=== PATIENT | male | born 1960 | race Caucasian/White ===

== ENCOUNTER → 2016-09-17 | Outpatient (CLI) | payer MEDICARE, MEDICAID ==
[~2016-09-17] MED LIST: AMLO2.5T2 PO; ASPI-1061 PO; ATOR10TA69 PO; GLIP5TAB11 PO; LISI-618 PO
[2016-09-17 09:32] LABS: BASOPHILS % (AUTO) 1.4 % (0.0-2.0); EOSINOPHILS % (AUTO) 5.3 % (1.0-6.0); HEMATOCRIT 29.8 % (41-53); HEMOGLOBIN 9.5 g/dL (13.5-17.5); LYMPHOCYTES # (AUTO) 1.5 K/uL (1.0-4.8); LYMPHOCYTES % (AUTO) 15.1 % (22.0-44.0); MEAN CORPUSCULAR HEMOGLOBIN 29.1 pg (26.0-34.0); MEAN CORPUSCULAR VOLUME 91 fL (80-100); MONOCYTES # (AUTO) 0.6 K/uL (0.1-1.0); MONOCYTES % (AUTO) 5.6 % (2.0-9.0); NEUTROPHILS # (AUTO) 7.1 K/uL (1.8-7.7); NEUTROPHILS % (AUTO) 72.6 % (40.0-70.0); PLATELET COUNT (AUTO) 370 K/uL (150-450); RED BLOOD CELL COUNT(AUTO) 3.28 MIL/uL (4.50-5.90); RED CELL DISTRIBUTION WIDTH 16.1 % (11.5-14.5); WHITE BLOOD COUNT (AUTO) 9.8 K/uL (4.5-11.0)
[2016-09-17 09:45] LABS: ALBUMIN 2.9 g/dL (3.4-5.0); BILIRUBIN,TOTAL 0.5 mg/dL (0.1-1.0); CALCIUM, TOTAL 9.5 mg/dL (8.8-10.5); CREATININE 7.62 mg/dL (0.60-1.30); MAGNESIUM 2.4 mg/dL (1.80-2.40); POTASSIUM 3.3 mmol/L (3.5-5.1); THYROID STIMULATING HORMONE 1.06 uIU/mL (0.36-3.74); TOTAL PROTEIN, SERUM 7.6 g/dL (6.4-8.2)
[2016-09-17 09:58] LABS: HEMOGLOBIN A1C 6.9 % (4.5-6.2)
== END | disposition home or self-care (01) ==
LOC: LABPV 07:57
PROVIDERS: ATTEND Internal Medicine Cardiovascular Disease
DX: I11.0 Hypertensive heart disease with heart failure (principal); I50.9 Heart failure, unspecified; E11.8 Type 2 diabetes mellitus with unspecified complications; I51.7 Cardiomegaly; I70.0 Atherosclerosis of aorta; R91.8 Other nonspecific abnormal finding of lung field; E55.9 Vitamin D deficiency, unspecified; J90 Pleural effusion, not elsewhere classified; Z95.0 Presence of cardiac pacemaker; Z95.1 Presence of aortocoronary bypass graft
CPT/HCPCS: 71020; 82306; 83036; 83735; 84439; 84443

== ENCOUNTER → 2017-02-19 | Outpatient (CLI) | payer MEDICARE, MEDICAID | END | disposition home or self-care (01) | LOC: RADMN 08:31 | PROVIDERS: ATTEND Internal Medicine Cardiovascular Disease | DX: I50.9 Heart failure, unspecified (principal); I49.9 Cardiac arrhythmia, unspecified | CPT/HCPCS: 78472; Q3010 ==

== ENCOUNTER 2018-05-05 13:56 | Inpatient (IN) | payer MEDICARE, MEDICAID ==
[~2018-05-05] VITALS: Ht 172.7 cm; Wt 77.6 kg
[~2018-05-05 13:56] MED LIST changes: -ASPI-1061 PO; +ASPI81TA87 PO
[2018-05-05 14:14] LABS: GLUCOSE,POINT OF CARE 135 MG/DL (70-110)
[2018-05-05] MEDS ORDERED: LORazepam 2 MG/ML VIAL IVP PRN (14:45)
[2018-05-05] MEDS ORDERED: ACETAMINOPHEN 325 MG TABLET PO PRN ×2 (14:45→15:15)
[2018-05-05] MEDS ORDERED: DEXTROSE 50%-WATER 25 GM/50 ML SYRINGE IVP PRN (14:45)
[2018-05-05] MEDS ORDERED: BISACODYL 10 MG RECTAL RECTAL SUPPOSITORY PR PRN (14:45)
[2018-05-05 14:51] LABS: BASOPHILS % (AUTO) 0.6 % (0.0-2.0); EOSINOPHILS % (AUTO) 0.6 % (1.0-6.0); LYMPHOCYTES # (AUTO) 0.8 K/uL (1.0-4.8); LYMPHOCYTES % (AUTO) 4.7 % (22.0-44.0); MEAN CORPUSCULAR HEMOGLOBIN 30.5 pg (26.0-34.0); MEAN CORPUSCULAR HGB CONC 32.6 G/dL (31.0-37.0); MEAN CORPUSCULAR VOLUME 94 fL (80-100); MONOCYTES # (AUTO) 0.7 K/uL (0.1-1.0); MONOCYTES % (AUTO) 4.1 % (2.0-9.0); NEUTROPHILS # (AUTO) 16.1 K/uL (1.8-7.7); RED BLOOD CELL COUNT(AUTO) 6.24 MIL/uL (4.50-5.90); RED CELL DISTRIBUTION WIDTH 17.1 % (11.5-14.5)
[2018-05-05 14:58] LABS: HEMATOCRIT 58.3 % (41-53)
[2018-05-05 15:04] LABS: ALANINE AMINOTRANSFERASE 43 U/L (12-78); ALBUMIN 4.2 g/dL (3.4-5.0); ALKALINE PHOSPHATASE 156 U/L (46-116); ANION GAP 23 mmol/L (8-16); ASPARTATE AMINOTRANSFERASE 19 U/L (15-37); BILIRUBIN,TOTAL 0.8 mg/dL (0.1-1.0); CALCIUM, TOTAL 10.3 mg/dL (8.8-10.5); CARBON DIOXIDE 23 mmol/L (22-29); CHLORIDE 85 mmol/L (98-107); CREATININE 12.55 mg/dL (0.60-1.30); GLOMERULAR FILTR. RATE CALC 4 mL/min (>60); GLUCOSE,RANDOM 181 mg/dL (70-110); SODIUM SERUM 131 mmol/L (136-145); TOTAL PROTEIN, SERUM 9.6 g/dL (6.4-8.2)
[2018-05-05 15:11] LABS: POTASSIUM 7.1 mmol/L (3.5-5.1)
[2018-05-05 15:12] LABS: UREA NITROGEN, BLOOD 111 mg/dL (7-18)
[2018-05-05] MEDS ORDERED: 0.9% SODIUM CHLORIDE 10 ML SYRINGE IVP PRN (15:15)
[2018-05-05] MEDS ORDERED: ONDANSETRON HCL 4 MG/2 ML VIAL IVP PRN (15:15)
[2018-05-05] MEDS: LevETIRAcetam 500 MG TABLET PO SCH ×2 (15:20→21:24)
[2018-05-05 15:25] LABS: CARBAMAZEPINE (TEGRETOL) < 0.5 mcg/mL (4.0-12.0); PHENYTOIN (DILANTIN) < 0.5 mcg/mL (10.0-20.0); VALPROIC ACID < 3 mcg/mL (50-100)
[2018-05-05] MEDS ORDERED: ALBUTEROL SULFATE 2.5 MG/0.5 ML NEB SOLUTION NEB ONE (15:45)
[2018-05-05] MEDS ORDERED: DEXTROSE 50%-WATER 25 GM/50 ML SYRINGE IVP ONE ×2 (15:45→22:30)
[2018-05-05] MEDS ORDERED: CALCIUM GLUCONATE 100 MG/ML 10 ML IVP ONE (15:45)
[2018-05-05] MEDS ORDERED: INSULIN REGULAR, HUMAN 100 UNITS/ML IVP ONE ×2 (15:45→22:45)
[2018-05-05] MEDS ORDERED: IPRATROPIUM BROMIDE 0.5 MG/2.5 ML NEB SOLUTION NEB ONE (15:45)
[2018-05-05 15:56] LABS: PLATELET COUNT (AUTO) 189 K/uL (150-450)
[2018-05-05 16:20] VITALS: BP 167/99
[2018-05-05 16:30] VITALS: BP 167/99
[2018-05-05 17:23] LABS: GLUCOSE,POINT OF CARE 180 MG/DL (70-110)
[2018-05-05 20:00] VITALS: BP 145/83
[2018-05-05] MEDS ORDERED: HEPARIN SODIUM,PORCINE 5,000 UNITS/ML VIAL SQ SCH (21:00)
[2018-05-05] MEDS: DOCUSATE SODIUM 100 MG CAPSULE PO SCH (21:00)
[2018-05-05 22:05] LABS: CALCIUM, TOTAL 9.6 mg/dL (8.8-10.5); CREATININE 9.33 mg/dL (0.60-1.30)
[2018-05-05 22:12] LABS: POTASSIUM 6.2 mmol/L (3.5-5.1)
[2018-05-05] MEDS ORDERED: SODIUM POLYSTYRENE SULFONATE 15 GM/60 ML SUSPENSION BOTTLE PO ONE (22:30)
[2018-05-05] MEDS ORDERED: INSULIN LISPRO 100 UNITS/ML SQ ONE (22:30)
[2018-05-05 23:00] VITALS: BP 168/101
[2018-05-06] VITALS: BP 111/69
[2018-05-06 04:00] VITALS: BP 116/71
[2018-05-06 04:57] LABS: BASOPHILS % (AUTO) 0.5 % (0.0-2.0); EOSINOPHILS % (AUTO) 0.7 % (1.0-6.0); HEMATOCRIT 51.2 % (41-53); HEMOGLOBIN 16.9 g/dL (13.5-17.5); LYMPHOCYTES # (AUTO) 0.9 K/uL (1.0-4.8); LYMPHOCYTES % (AUTO) 6.5 % (22.0-44.0); MEAN CORPUSCULAR HEMOGLOBIN 31.2 pg (26.0-34.0); MEAN CORPUSCULAR VOLUME 95 fL (80-100); MONOCYTES # (AUTO) 1.1 K/uL (0.1-1.0); MONOCYTES % (AUTO) 8.5 % (2.0-9.0); NEUTROPHILS # (AUTO) 11.1 K/uL (1.8-7.7); NEUTROPHILS % (AUTO) 83.8 % (40.0-70.0); PLATELET COUNT (AUTO) 172 K/uL (150-450); RED BLOOD CELL COUNT(AUTO) 5.42 MIL/uL (4.50-5.90); RED CELL DISTRIBUTION WIDTH 16.7 % (11.5-14.5)
[2018-05-06 05:08] LABS: CREATININE 9.67 mg/dL (0.60-1.30); MAGNESIUM 3.1 mg/dL (1.80-2.40); PHOSPHORUS 8.4 mg/dL (2.5-4.9); POTASSIUM 5.7 mmol/L (3.5-5.1)
[2018-05-06] MEDS: PANTOPRAZOLE SODIUM 40 MG DR TABLET PO SCH (08:16)
[2018-05-06] MEDS: LevETIRAcetam 500 MG TABLET PO SCH ×2 (08:16→21:21)
[2018-05-06] MEDS: ATORVASTATIN CALCIUM 20 MG TABLET PO SCH (08:16)
[2018-05-06 08:44] VITALS: BP 113/70
[2018-05-06] MEDS: DOCUSATE SODIUM 100 MG CAPSULE PO SCH ×2 (09:00→21:21)
[2018-05-06] MEDS ORDERED: ASPIRIN 81 MG CHEWABLE TABLET PO SCH (09:00)
[2018-05-06] MEDS ORDERED: SODIUM CHLORIDE 0.9% 2,000 ML IV ONE (10:30)
[2018-05-06 11:43] LABS: GLUCOSE,POINT OF CARE 258 MG/DL (70-110)
[2018-05-06 12:00] VITALS: BP 127/42
[2018-05-06] MEDS: INSULIN LISPRO 100 UNITS/ML SQ PRN ×2 (12:08→21:31)
[2018-05-06 16:00] VITALS: BP 90/35
[2018-05-06 18:18] LABS: GLUCOSE,POINT OF CARE 129 MG/DL (70-110)
[2018-05-06 20:00] VITALS: BP 143/78
[2018-05-06 22:47] LABS: GLUCOSE,POINT OF CARE 167 MG/DL (70-110)
[2018-05-07] VITALS: BP 114/38
[2018-05-07 04:00] VITALS: BP 121/48
[2018-05-07 04:45] LABS: BASOPHILS % (AUTO) 1.2 % (0.0-2.0); EOSINOPHILS % (AUTO) 2.4 % (1.0-6.0); HEMATOCRIT 45.7 % (41-53); HEMOGLOBIN 15.6 g/dL (13.5-17.5); LYMPHOCYTES # (AUTO) 1.3 K/uL (1.0-4.8); LYMPHOCYTES % (AUTO) 12.1 % (22.0-44.0); MEAN CORPUSCULAR HEMOGLOBIN 31.7 pg (26.0-34.0); MEAN CORPUSCULAR HGB CONC 34.2 G/dL (31.0-37.0); MEAN CORPUSCULAR VOLUME 93 fL (80-100); MONOCYTES # (AUTO) 1.1 K/uL (0.1-1.0); MONOCYTES % (AUTO) 10.4 % (2.0-9.0); NEUTROPHILS # (AUTO) 7.9 K/uL (1.8-7.7); NEUTROPHILS % (AUTO) 73.9 % (40.0-70.0); PLATELET COUNT (AUTO) 151 K/uL (150-450); RED BLOOD CELL COUNT(AUTO) 4.92 MIL/uL (4.50-5.90); RED CELL DISTRIBUTION WIDTH 16.4 % (11.5-14.5)
[2018-05-07 04:55] LABS: CALCIUM, TOTAL 8.9 mg/dL (8.8-10.5); CREATININE 7.26 mg/dL (0.60-1.30); MAGNESIUM 2.5 mg/dL (1.80-2.40); PHOSPHORUS 7.9 mg/dL (2.5-4.9); POTASSIUM 4.1 mmol/L (3.5-5.1)
[2018-05-07 06:43] LABS: GLUCOSE,POINT OF CARE 150 MG/DL (70-110)
[2018-05-07 06:43] LABS: GLUCOSE,POINT OF CARE 135 MG/DL (70-110)
[2018-05-07 06:43] LABS: GLUCOSE,POINT OF CARE 137 MG/DL (70-110)
[2018-05-07 08:00] VITALS: BP 97/45
[2018-05-07] MEDS ORDERED: SODIUM CHLORIDE 0.9% 250 ML IV ONE (09:08)
[2018-05-07] MEDS: DOCUSATE SODIUM 100 MG CAPSULE PO SCH ×2 (09:10→20:21)
[2018-05-07] MEDS: LevETIRAcetam 500 MG TABLET PO SCH ×2 (09:10→20:21)
[2018-05-07] MEDS: ATORVASTATIN CALCIUM 20 MG TABLET PO SCH (09:10)
[2018-05-07] MEDS: PANTOPRAZOLE SODIUM 40 MG DR TABLET PO SCH (09:10)
[2018-05-07 12:00] VITALS: BP 107/37
[2018-05-07] MEDS: CALCIUM ACETATE 667 MG CAPSULE PO SCH ×2 (12:09→18:40)
[2018-05-07] MEDS: INSULIN LISPRO 100 UNITS/ML SQ PRN ×3 (12:09→21:32)
[2018-05-07 15:13] VITALS: BP 125/46
[2018-05-07 19:03] LABS: GLUCOMETER DEV NAME(LOC) 6N 2D; GLUCOSE,POINT OF CARE 246 MG/DL (70-110)
[2018-05-07 19:50] VITALS: BP 119/52
[2018-05-07 21:32] LABS: GLUCOMETER DEV NAME(LOC) 6N 1E; GLUCOSE,POINT OF CARE 255 MG/DL (70-110)
[2018-05-08 00:30] VITALS: BP 115/56
[2018-05-08 04:35] VITALS: BP 112/58
[2018-05-08] MEDS: INSULIN LISPRO 100 UNITS/ML SQ PRN ×2 (06:37→12:23)
[2018-05-08 07:08] LABS: GLUCOSE,POINT OF CARE 181 MG/DL (70-110)
[2018-05-08] MEDS: PANTOPRAZOLE SODIUM 40 MG DR TABLET PO SCH (08:47)
[2018-05-08] MEDS: CALCIUM ACETATE 667 MG CAPSULE PO SCH ×2 (08:47→12:26)
[2018-05-08] MEDS: DOCUSATE SODIUM 100 MG CAPSULE PO SCH (08:47)
[2018-05-08 11:47] VITALS: BP 104/70
[2018-05-08] MEDS: ATORVASTATIN CALCIUM 20 MG TABLET PO SCH (12:23)
[2018-05-08] MEDS: LevETIRAcetam 500 MG TABLET PO SCH (12:28)
[2018-05-09 06:13] LABS: GLUCOMETER DEV NAME(LOC) 6N 1E; GLUCOSE,POINT OF CARE 161 MG/DL (70-110)
[2018-05-09 06:13] LABS: GLUCOMETER DEV NAME(LOC) 6N 1E; GLUCOSE,POINT OF CARE 186 MG/DL (70-110)
== END 2018-05-08 17:10 | disposition home or self-care (01) | DRG 82 ==
LOC: EMS 13:58 → ICU 15:42 → 6N 05-07 14:50
PROVIDERS: ADMIT Internal Medicine; ATTEND Internal Medicine
PROC: 5A1D70Z Performance of Urinary Filtration, Intermittent, Less than 6 Hours Per Day (ICD-10-PCS; principal; 2018-05-05)
PROC: 5A1D70Z Performance of Urinary Filtration, Intermittent, Less than 6 Hours Per Day (ICD-10-PCS; 2018-05-06)
PROC: 5A1D70Z Performance of Urinary Filtration, Intermittent, Less than 6 Hours Per Day (ICD-10-PCS; 2018-05-08)
DX: S06.5X9A Traumatic subdural hemorrhage with loss of consciousness of unspecified duration, initial encounter (principal); N18.6 End stage renal disease; I13.2 Hypertensive heart and chronic kidney disease with heart failure and with stage 5 chronic kidney disease, or end stage renal disease; G40.909 Epilepsy, unspecified, not intractable, without status epilepticus; E11.319 Type 2 diabetes mellitus with unspecified diabetic retinopathy without macular edema; E11.21 Type 2 diabetes mellitus with diabetic nephropathy; E11.22 Type 2 diabetes mellitus with diabetic chronic kidney disease; D72.829 Elevated white blood cell count, unspecified; E78.5 Hyperlipidemia, unspecified; E83.39 Other disorders of phosphorus metabolism; E87.5 Hyperkalemia; E87.6 Hypokalemia; I95.9 Hypotension, unspecified; R21 Rash and other nonspecific skin eruption; H54.8 Legal blindness, as defined in USA; I25.10 Atherosclerotic heart disease of native coronary artery without angina pectoris; I50.9 Heart failure, unspecified; X58.XXXA Exposure to other specified factors, initial encounter; L87.0 Keratosis follicularis et parafollicularis in cutem penetrans; R09.02 Hypoxemia; Z79.84 Long term (current) use of oral hypoglycemic drugs; Z82.49 Family history of ischemic heart disease and other diseases of the circulatory system; Z83.3 Family history of diabetes mellitus; Z95.0 Presence of cardiac pacemaker; Z95.1 Presence of aortocoronary bypass graft; Z79.899 Other long term (current) drug therapy; Z79.82 Long term (current) use of aspirin; Y93.89 Activity, other specified; Y92.89 Other specified places as the place of occurrence of the external cause; Y99.8 Other external cause status
CPT/HCPCS: 36245; 70450; 76937; 83735; 84100; 87081; 87340; 90935; 93005; 93306; 93970; 97116; 97162; 99291; G0378; J0610; J1815; J7030; J7050

== ENCOUNTER → 2018-06-23 | Outpatient (CLI) | payer MEDICARE, MEDICAID ==
[~2018-06-23] VITALS: Ht 167.6 cm; Wt 73.0 kg
[2018-06-23 09:46] VITALS: BP 181/107
== END | disposition home or self-care (01) ==
LOC: SRCNTR 09:21
PROVIDERS: ATTEND Neurological Surgery
DX: S06.5X9A Traumatic subdural hemorrhage with loss of consciousness of unspecified duration, initial encounter (principal); R56.9 Unspecified convulsions; R51 Headache; W19.XXXA Unspecified fall, initial encounter; Y93.89 Activity, other specified; Y92.89 Other specified places as the place of occurrence of the external cause; Y99.8 Other external cause status
CPT/HCPCS: G0463

== ENCOUNTER 2018-08-11 11:14 | Inpatient (IN) | payer MEDICARE, MEDICAID ==
[~2018-08-11] VITALS: Ht 170.2 cm; Wt 67.4 kg
[2018-08-11 11:54] LABS: GLUCOSE,POINT OF CARE 378 MG/DL (70-110)
[2018-08-11 14:15] LABS: HEMATOCRIT 46.7 % (41-53); HEMOGLOBIN 15.1 g/dL (13.5-17.5); MEAN CORPUSCULAR HEMOGLOBIN 30.2 pg (26.0-34.0); MEAN CORPUSCULAR HGB CONC 32.5 G/dL (31.0-37.0); MEAN CORPUSCULAR VOLUME 93 fL (80-100); PLATELET COUNT (AUTO) 224 K/uL (150-450); RED BLOOD CELL COUNT(AUTO) 5.01 MIL/uL (4.50-5.90); RED CELL DISTRIBUTION WIDTH 16.6 % (11.5-14.5)
[2018-08-11 14:33] LABS: ALANINE AMINOTRANSFERASE 35 U/L (12-78); ALKALINE PHOSPHATASE 198 U/L (46-116); ANION GAP 9 mmol/L (8-16); ASPARTATE AMINOTRANSFERASE 21 U/L (15-37); BILIRUBIN,TOTAL 0.8 mg/dL (0.1-1.0); CALCIUM, TOTAL 11.2 mg/dL (8.8-10.5); CARBON DIOXIDE 30 mmol/L (22-29); CHLORIDE 86 mmol/L (98-107); CREATININE 7.99 mg/dL (0.60-1.30); GLOMERULAR FILTR. RATE CALC 7 mL/min (>60); GLUCOSE,RANDOM 315 mg/dL (70-110); SODIUM SERUM 125 mmol/L (136-145); TOTAL PROTEIN, SERUM 8.2 g/dL (6.4-8.2); UREA NITROGEN, BLOOD 67 mg/dL (7-18)
[2018-08-11 14:38] LABS: POTASSIUM 6.3 mmol/L (3.5-5.1)
[2018-08-11] MEDS ORDERED: AMLO-512 PO (14:38)
[2018-08-11 14:39] LABS: LACTIC ACID 2.2 mmol/L (0.4-2.0)
[2018-08-11 14:41] LABS: B-TYPE NATRIURETIC PEPTIDE 3300 pg/mL (0-100)
[2018-08-11 14:42] LABS: ALBUMIN 2.6 g/dL (3.4-5.0)
[2018-08-11] MEDS ORDERED: HYDROmorphone 2 MG/ML SYRINGE IVP ONE (14:45)
[2018-08-11] MEDS ORDERED: ONDANSETRON HCL 4 MG/2 ML VIAL IVP ONE (14:45)
[2018-08-11 14:47] LABS: BAND NEUTROPHILS % (MANUAL) 14 % (0-5); LYMPHOCYTES % (MANUAL) 12 % (22-44); SEGMENTED NEUTROPHILS % 74 % (40-70)
[2018-08-11] MEDS ORDERED: IPRATROPIUM BROMIDE 0.5 MG/2.5 ML NEB SOLUTION NEB ONE (15:00)
[2018-08-11] MEDS ORDERED: PIPERACILLIN/TAZO 3.375 GM/D5W 50 ML IV ONE (15:00)
[2018-08-11] MEDS ORDERED: ALBUTEROL SULFATE 5 MG/ML 20 ML NEB SOLN [BULK] NEB ONE (15:00)
[2018-08-11] MEDS ORDERED: VANCOMYCIN HCL 1 GM/D5% WATER 200 ML IV ONE (15:00)
[2018-08-11] MEDS ORDERED: SODIUM CHLORIDE 0.9% 2,000 ML IV ONE (16:17)
[2018-08-11] MEDS ORDERED: INSULIN REGULAR, HUMAN 100 UNITS/ML IVP ONE ×2 (16:30→22:00)
[2018-08-11] MEDS ORDERED: CALCIUM GLUCONATE 100 MG/ML 10 ML IVP ONE (16:30)
[2018-08-11 16:44] LABS: GLUCOSE,POINT OF CARE 310 MG/DL (70-110)
[2018-08-11] MEDS: MORPHINE SULFATE 4 MG/ML SYRINGE IVP PRN (17:00)
[2018-08-11] MEDS ORDERED: NOREPINEPHRINE 4 MG/D5%-WATER 250 ML IV PRN (17:30)
[2018-08-11] MEDS ORDERED: ONDANSETRON HCL 4 MG/2 ML VIAL IVP PRN ×2 (18:30→19:45)
[2018-08-11] MEDS ORDERED: ACETAMINOPHEN 325 MG TABLET PO PRN (18:30)
[2018-08-11] MEDS ORDERED: 0.9% SODIUM CHLORIDE 10 ML SYRINGE IVP PRN (18:30)
[2018-08-11] MEDS ORDERED: ZOLPIDEM TARTRATE 5 MG TABLET PO PRN (19:45)
[2018-08-11] MEDS ORDERED: MORPHINE SULFATE 4 MG/ML SYRINGE IVP PRN (19:45)
[2018-08-11] MEDS ORDERED: BISACODYL 10 MG RECTAL RECTAL SUPPOSITORY PR PRN (19:45)
[2018-08-11] MEDS ORDERED: DEXTROSE 50%-WATER 25 GM/50 ML SYRINGE IVP PRN (19:45)
[2018-08-11] MEDS ORDERED: MAGNESIUM HYDROXIDE SUSPENSION 30 ML UDCUP PO PRN (19:45)
[2018-08-11] MEDS ORDERED: ALBUTEROL SULFATE 2.5 MG/0.5 ML NEB SOLUTION NEB PRN (19:45)
[2018-08-11] MEDS ORDERED: IPRATROPIUM BROMIDE 0.5 MG/2.5 ML NEB SOLUTION NEB PRN (19:45)
[2018-08-11] MEDS ORDERED: VANCOMYCIN HCL 1 GM/D5% WATER 200 ML IV PRN (20:15)
[2018-08-11 21:34] LABS: CALCIUM, TOTAL 10.6 mg/dL (8.8-10.5); CREATININE 8.07 mg/dL (0.60-1.30)
[2018-08-11 21:38] LABS: POTASSIUM 6.2 mmol/L (3.5-5.1)
[2018-08-11] MEDS: HEPARIN SODIUM,PORCINE 5,000 UNITS/ML VIAL SQ SCH (22:18)
[2018-08-11] MEDS ORDERED: SODIUM CHLORIDE 0.9% 250 ML IV ONE (22:34)
[2018-08-11 22:38] LABS: GLUCOSE,POINT OF CARE 337 MG/DL (70-110)
[2018-08-11] MEDS: PIPERACILLIN SODIUM/TAZOBACTAM 2.25 GM in DEXTROSE 5%-WATER 50 ML IV SCH (22:57)
[2018-08-11] MEDS ORDERED: PIPERACILLIN/TAZO 3.375 GM/D5W 50 ML IV SCH (23:00)
[2018-08-11 23:45] LABS: CALCIUM, TOTAL 9.3 mg/dL (8.8-10.5); CREATININE 7.25 mg/dL (0.60-1.30); POTASSIUM 5.7 mmol/L (3.5-5.1)
[2018-08-12] MEDS: INSULIN LISPRO 100 UNITS/ML SQ PRN ×4 (00:12→18:33)
[2018-08-12 00:19] VITALS: BP 116/53
[2018-08-12] MEDS: ACETAMINOPHEN 325 MG TABLET PO PRN ×2 (00:19→13:23)
[2018-08-12 01:19] VITALS: BP 109/57
[2018-08-12] MEDS: OxyCODONE HCL/ACETAMINOPHEN 5-325 MG TABLET PO PRN (03:23)
[2018-08-12 04:58] LABS: HEMATOCRIT 40.5 % (41-53); HEMOGLOBIN 13.3 g/dL (13.5-17.5); MEAN CORPUSCULAR HEMOGLOBIN 30.1 pg (26.0-34.0); MEAN CORPUSCULAR HGB CONC 32.9 G/dL (31.0-37.0); MEAN CORPUSCULAR VOLUME 92 fL (80-100); PLATELET COUNT (AUTO) 200 K/uL (150-450); RED BLOOD CELL COUNT(AUTO) 4.43 MIL/uL (4.50-5.90); RED CELL DISTRIBUTION WIDTH 16.5 % (11.5-14.5)
[2018-08-12 05:12] LABS: BILIRUBIN,TOTAL 0.8 mg/dL (0.1-1.0); CALCIUM, TOTAL 10.6 mg/dL (8.8-10.5); CREATININE 8.13 mg/dL (0.60-1.30); MAGNESIUM 2.9 mg/dL (1.80-2.40); PHOSPHORUS 5.7 mg/dL (2.5-4.9); TOTAL PROTEIN, SERUM 6.8 g/dL (6.4-8.2)
[2018-08-12 05:14] LABS: POTASSIUM 6.3 mmol/L (3.5-5.1)
[2018-08-12 05:18] LABS: BAND NEUTROPHILS % (MANUAL) 10 % (0-5); LYMPHOCYTES % (MANUAL) 3 % (22-44); MONOCYTES % (MANUAL) 7 % (2-9); SEGMENTED NEUTROPHILS % 80 % (40-70)
[2018-08-12 06:25] LABS: GLUCOSE,POINT OF CARE 338 MG/DL (70-110)
[2018-08-12 06:59] LABS: GLUCOSE,POINT OF CARE 182 MG/DL (70-110)
[2018-08-12] MEDS ORDERED: VANCOMYCIN HCL 1 GM/D5% WATER 200 ML IV SCH (07:00)
[2018-08-12 08:00] VITALS: BP 118/57
[2018-08-12] MEDS: PIPERACILLIN SODIUM/TAZOBACTAM 2.25 GM in DEXTROSE 5%-WATER 50 ML IV SCH ×2 (08:17→15:38)
[2018-08-12] MEDS: FAMOTIDINE 20 MG TABLET PO SCH (09:00)
[2018-08-12] MEDS: HEPARIN SODIUM,PORCINE 5,000 UNITS/ML VIAL SQ SCH (09:00)
[2018-08-12 12:00] VITALS: BP 101/57
[2018-08-12] MEDS ORDERED: PROPOFOL 1% 20 ML VIAL IVP ONE (12:00)
[2018-08-12] MEDS ORDERED: FentaNYL CITRATE-PF 100 MCG/2 ML VIAL IVP ONE (12:00)
[2018-08-12 13:13] LABS: GLUCOSE,POINT OF CARE 201 MG/DL (70-110)
[2018-08-12 16:00] VITALS: BP 111/66
[2018-08-12] MEDS ORDERED: VANCOMYCIN HCL 500 MG in DEXTROSE 5%-WATER 100 ML IV ONE (16:45)
[2018-08-12 17:56] LABS: HEMOGLOBIN 14.3 g/dL (13.5-17.5); MEAN CORPUSCULAR HEMOGLOBIN 30.1 pg (26.0-34.0); MEAN CORPUSCULAR HGB CONC 32.5 G/dL (31.0-37.0); MEAN CORPUSCULAR VOLUME 92 fL (80-100); PLATELET COUNT (AUTO) 189 K/uL (150-450); RED BLOOD CELL COUNT(AUTO) 4.76 MIL/uL (4.50-5.90); RED CELL DISTRIBUTION WIDTH 16.9 % (11.5-14.5)
[2018-08-12 18:00] LABS: CALCIUM, TOTAL 10.3 mg/dL (8.8-10.5); CREATININE 4.97 mg/dL (0.60-1.30); MAGNESIUM 2.3 mg/dL (1.80-2.40); POTASSIUM 5.3 mmol/L (3.5-5.1)
[2018-08-12 18:44] LABS: GLUCOSE,POINT OF CARE 217 MG/DL (70-110)
[2018-08-12 18:55] LABS: BAND NEUTROPHILS % (MANUAL) 18 % (0-5); LYMPHOCYTES % (MANUAL) 3 % (22-44); MONOCYTES % (MANUAL) 4 % (2-9); SEGMENTED NEUTROPHILS % 75 % (40-70)
[2018-08-12] MEDS: MORPHINE SULFATE 4 MG/ML SYRINGE IVP PRN (19:42)
[2018-08-12] MEDS ORDERED: SODIUM CL IRRIG SOLN BAG 3,000 ML IRRIG ONE (20:43)
[2018-08-12] MEDS ORDERED: BUPIVACAINE HCL/PF 0.5% 30 ML VIAL ONE (20:43)
[2018-08-12] MEDS ORDERED: SODIUM CHLORIDE 0.9% 1,000 ML IV ONE (20:53)
[2018-08-12] MEDS ORDERED: SODIUM HYPOCHLORITE 0.25% [HALF STRENGTH] 473 ML SOLUTION TP ONE (21:15)
[2018-08-13] VITALS (7 sets, daily range): BP systolic 96–127; BP diastolic 49–86
[2018-08-13] MEDS: OxyCODONE HCL/ACETAMINOPHEN 5-325 MG TABLET PO PRN ×2 (00:07→20:19)
[2018-08-13] MEDS ORDERED: SODIUM CHLORIDE 0.9% 250 ML IV ONE (00:19)
[2018-08-13 00:22] LABS: GLUCOSE,POINT OF CARE 109 MG/DL (70-110)
[2018-08-13] MEDS: HEPARIN SODIUM,PORCINE 5,000 UNITS/ML VIAL SQ SCH ×3 (00:26→21:00)
[2018-08-13] MEDS: PIPERACILLIN SODIUM/TAZOBACTAM 2.25 GM in DEXTROSE 5%-WATER 50 ML IV SCH ×4 (00:26→23:49)
[2018-08-13 04:53] LABS: HEMATOCRIT 37.6 % (41-53); HEMOGLOBIN 12.5 g/dL (13.5-17.5); MEAN CORPUSCULAR HEMOGLOBIN 30.4 pg (26.0-34.0); MEAN CORPUSCULAR HGB CONC 33.2 G/dL (31.0-37.0); MEAN CORPUSCULAR VOLUME 92 fL (80-100); PLATELET COUNT (AUTO) 185 K/uL (150-450); RED BLOOD CELL COUNT(AUTO) 4.11 MIL/uL (4.50-5.90); RED CELL DISTRIBUTION WIDTH 16.5 % (11.5-14.5)
[2018-08-13 05:28] LABS: ALBUMIN 1.7 g/dL (3.4-5.0); CALCIUM, TOTAL 9.7 mg/dL (8.8-10.5); CREATININE 5.61 mg/dL (0.60-1.30); MAGNESIUM 2.3 mg/dL (1.80-2.40); TOTAL PROTEIN, SERUM 5.4 g/dL (6.4-8.2)
[2018-08-13 05:46] LABS: POTASSIUM 6.4 mmol/L (3.5-5.1)
[2018-08-13 07:26] LABS: BAND NEUTROPHILS % (MANUAL) 16 % (0-5); LYMPHOCYTES % (MANUAL) 3 % (22-44); MONOCYTES % (MANUAL) 5 % (2-9); SEGMENTED NEUTROPHILS % 76 % (40-70)
[2018-08-13] MEDS ORDERED: SODIUM CHLORIDE 0.9% 2,000 ML IV ONE (08:41)
[2018-08-13 09:09] LABS: GLUCOSE,POINT OF CARE 115 MG/DL (70-110)
[2018-08-13] MEDS: ATORVASTATIN CALCIUM 10 MG TABLET PO SCH (09:40)
[2018-08-13] MEDS: ASPIRIN 81 MG EC TABLET PO SCH (09:41)
[2018-08-13] MEDS: FAMOTIDINE 20 MG TABLET PO SCH (09:41)
[2018-08-13] MEDS ORDERED: SODIUM CHLORIDE 0.9% IRRIG BTL 1,000 ML IRRIG ONE (10:47)
[2018-08-13 13:04] LABS: GLUCOSE,POINT OF CARE 108 MG/DL (70-110)
[2018-08-13 18:44] LABS: GLUCOSE,POINT OF CARE 135 MG/DL (70-110)
[2018-08-13 22:39] LABS: GLUCOSE,POINT OF CARE 163 MG/DL (70-110)
[2018-08-14] VITALS (7 sets, daily range): BP systolic 75–107; BP diastolic 15–86
[2018-08-14 05:20] LABS: HEMATOCRIT 39.9 % (41-53); HEMOGLOBIN 13.4 g/dL (13.5-17.5); MEAN CORPUSCULAR HEMOGLOBIN 30.7 pg (26.0-34.0); MEAN CORPUSCULAR HGB CONC 33.4 G/dL (31.0-37.0); MEAN CORPUSCULAR VOLUME 92 fL (80-100); PLATELET COUNT (AUTO) 226 K/uL (150-450); RED BLOOD CELL COUNT(AUTO) 4.35 MIL/uL (4.50-5.90); RED CELL DISTRIBUTION WIDTH 17.1 % (11.5-14.5)
[2018-08-14 06:40] LABS: GLUCOSE,POINT OF CARE 219 MG/DL (70-110)
[2018-08-14] MEDS: PIPERACILLIN SODIUM/TAZOBACTAM 2.25 GM in DEXTROSE 5%-WATER 50 ML IV SCH ×3 (06:47→23:43)
[2018-08-14 06:50] LABS: ALBUMIN 1.5 g/dL (3.4-5.0); BILIRUBIN,TOTAL 1.3 mg/dL (0.1-1.0); CALCIUM, TOTAL 10.8 mg/dL (8.8-10.5); CREATININE 4.79 mg/dL (0.60-1.30); MAGNESIUM 2.4 mg/dL (1.80-2.40); POTASSIUM 5.8 mmol/L (3.5-5.1); TOTAL PROTEIN, SERUM 6.5 g/dL (6.4-8.2); VANCOMYCIN,RANDOM 13.8 mcg/mL (25.0-50.0)
[2018-08-14] MEDS: INSULIN LISPRO 100 UNITS/ML SQ PRN ×2 (06:58→21:05)
[2018-08-14] MEDS: FAMOTIDINE 20 MG TABLET PO SCH (09:00)
[2018-08-14] MEDS: ATORVASTATIN CALCIUM 10 MG TABLET PO SCH (09:00)
[2018-08-14] MEDS: HEPARIN SODIUM,PORCINE 5,000 UNITS/ML VIAL SQ SCH ×2 (09:00→20:13)
[2018-08-14] MEDS: ASPIRIN 81 MG EC TABLET PO SCH (09:00)
[2018-08-14 09:17] LABS: BAND NEUTROPHILS % (MANUAL) 4 % (0-5); LYMPHOCYTES % (MANUAL) 3 % (22-44); METAMYELOCYTES % 2 % (0-0); MONOCYTES % (MANUAL) 5 % (2-9); SEGMENTED NEUTROPHILS % 86 % (40-70)
[2018-08-14] MEDS ORDERED: VANCOMYCIN HCL 1 GM/D5% WATER 200 ML IV ONE (10:00)
[2018-08-14] MEDS: OxyCODONE HCL/ACETAMINOPHEN 5-325 MG TABLET PO PRN ×2 (10:56→21:05)
[2018-08-14] MEDS: MORPHINE SULFATE 4 MG/ML SYRINGE IVP PRN (11:10)
[2018-08-14] MEDS ORDERED: SODIUM CHLORIDE 0.9% IRRIG BTL 1,000 ML IRRIG ONE (15:39)
[2018-08-14 18:54] LABS: GLUCOSE,POINT OF CARE 202 MG/DL (70-110)
[2018-08-14 23:58] LABS: GLUCOSE,POINT OF CARE 204 MG/DL (70-110)
[2018-08-15] VITALS (8 sets, daily range): BP systolic 59–131; BP diastolic 33–75
[2018-08-15 05:02] LABS: HEMATOCRIT 44.6 % (41-53); HEMOGLOBIN 14.8 g/dL (13.5-17.5); MEAN CORPUSCULAR HEMOGLOBIN 30.2 pg (26.0-34.0); MEAN CORPUSCULAR HGB CONC 33.1 G/dL (31.0-37.0); MEAN CORPUSCULAR VOLUME 91 fL (80-100); PLATELET COUNT (AUTO) 229 K/uL (150-450); RED BLOOD CELL COUNT(AUTO) 4.88 MIL/uL (4.50-5.90); RED CELL DISTRIBUTION WIDTH 16.8 % (11.5-14.5)
[2018-08-15] MEDS: PIPERACILLIN SODIUM/TAZOBACTAM 2.25 GM in DEXTROSE 5%-WATER 50 ML IV SCH ×3 (05:28→22:56)
[2018-08-15 05:33] LABS: ALBUMIN 1.5 g/dL (3.4-5.0); BILIRUBIN,TOTAL 1.6 mg/dL (0.1-1.0); CALCIUM, TOTAL 10.1 mg/dL (8.8-10.5); CREATININE 6.12 mg/dL (0.60-1.30); MAGNESIUM 2.7 mg/dL (1.80-2.40); TOTAL PROTEIN, SERUM 5.7 g/dL (6.4-8.2)
[2018-08-15 05:57] LABS: BAND NEUTROPHILS % (MANUAL) 18 % (0-5); LYMPHOCYTES % (MANUAL) 2 % (22-44); METAMYELOCYTES % 1 % (0-0); MONOCYTES % (MANUAL) 4 % (2-9); MYELOCYTES % 1 % (0-0); SEGMENTED NEUTROPHILS % 74 % (40-70)
[2018-08-15] MEDS: INSULIN LISPRO 100 UNITS/ML SQ PRN ×4 (06:03→22:53)
[2018-08-15] MEDS ORDERED: CALCIUM GLUCONATE 1,000 MG in DEXTROSE 5%-WATER 50 ML IV ONE (06:38)
[2018-08-15] MEDS: HEPARIN SODIUM,PORCINE 5,000 UNITS/ML VIAL SQ SCH ×2 (09:00→21:33)
[2018-08-15] MEDS: FAMOTIDINE 20 MG TABLET PO SCH (10:38)
[2018-08-15] MEDS: ASPIRIN 81 MG EC TABLET PO SCH (10:38)
[2018-08-15] MEDS: ATORVASTATIN CALCIUM 10 MG TABLET PO SCH (10:39)
[2018-08-15] MEDS ORDERED: VANCOMYCIN HCL 500 MG in DEXTROSE 5%-WATER 100 ML IV ONE (14:00)
[2018-08-15] MEDS ORDERED: SODIUM CHLORIDE 0.9% 250 ML IV ONE (14:40)
[2018-08-15] MEDS: OxyCODONE HCL/ACETAMINOPHEN 5-325 MG TABLET PO PRN ×2 (15:52→16:24)
[2018-08-15 18:04] LABS: GLUCOSE,POINT OF CARE 159 MG/DL (70-110)
[2018-08-15] MEDS: MORPHINE SULFATE 4 MG/ML SYRINGE IVP PRN (21:33)
[2018-08-16] VITALS (7 sets, daily range): BP systolic 96–129; BP diastolic 44–71
[2018-08-16] MEDS ORDERED: SODIUM CHLORIDE 0.9% 250 ML IV ONE (02:31)
[2018-08-16] MEDS ORDERED: SODIUM CHLORIDE 0.9% IRRIG BTL 1,000 ML IRRIG ONE (04:01)
[2018-08-16] MEDS: MORPHINE SULFATE 4 MG/ML SYRINGE IVP PRN ×2 (05:40→23:51)
[2018-08-16] MEDS: INSULIN LISPRO 100 UNITS/ML SQ PRN ×3 (05:47→18:28)
[2018-08-16] MEDS: PIPERACILLIN SODIUM/TAZOBACTAM 2.25 GM in DEXTROSE 5%-WATER 50 ML IV SCH ×3 (06:11→23:54)
[2018-08-16 06:13] LABS: VANCOMYCIN,RANDOM 24.3 mcg/mL (25.0-50.0)
[2018-08-16 08:42] LABS: CALCIUM, TOTAL 10.4 mg/dL (8.8-10.5); CREATININE 4.71 mg/dL (0.60-1.30); MAGNESIUM 2.5 mg/dL (1.80-2.40); PHOSPHORUS 6.8 mg/dL (2.5-4.9); POTASSIUM 5.4 mmol/L (3.5-5.1)
[2018-08-16] MEDS: ATORVASTATIN CALCIUM 10 MG TABLET PO SCH (08:44)
[2018-08-16] MEDS: ASPIRIN 81 MG EC TABLET PO SCH (08:44)
[2018-08-16] MEDS: FAMOTIDINE 20 MG TABLET PO SCH (08:44)
[2018-08-16] MEDS: HEPARIN SODIUM,PORCINE 5,000 UNITS/ML VIAL SQ SCH ×2 (08:58→21:00)
[2018-08-16] MEDS ORDERED: SODIUM CHLORIDE 0.9% 0 ML IV ONE (09:54)
[2018-08-16 11:19] LABS: GLUCOMETER DEV NAME(LOC) 5S.1; GLUCOSE,POINT OF CARE 284 MG/DL (70-110)
[2018-08-16 11:19] LABS: GLUCOMETER DEV NAME(LOC) 5S.1; GLUCOSE,POINT OF CARE 235 MG/DL (70-110)
[2018-08-16 11:19] LABS: GLUCOMETER DEV NAME(LOC) 5S.1; GLUCOSE,POINT OF CARE 241 MG/DL (70-110)
[2018-08-16 11:29] LABS: GLUCOMETER DEV NAME(LOC) 5S.2; GLUCOSE,POINT OF CARE 329 MG/DL (70-110)
[2018-08-16] MEDS ORDERED: SODIUM CHLORIDE 0.9% 1,000 ML IV ONE (17:19)
[2018-08-16 18:59] LABS: GLUCOMETER DEV NAME(LOC) 5S.2; GLUCOSE,POINT OF CARE 338 MG/DL (70-110)
[2018-08-17] VITALS (7 sets, daily range): BP systolic 104–139; BP diastolic 46–64
[2018-08-17] MEDS: PIPERACILLIN SODIUM/TAZOBACTAM 2.25 GM in DEXTROSE 5%-WATER 50 ML IV SCH ×2 (06:39→16:50)
[2018-08-17 06:41] LABS: HEMATOCRIT 40.4 % (41-53); HEMOGLOBIN 13.2 g/dL (13.5-17.5); MEAN CORPUSCULAR HGB CONC 32.7 G/dL (31.0-37.0); MEAN CORPUSCULAR VOLUME 92 fL (80-100); PLATELET COUNT (AUTO) 180 K/uL (150-450); RED BLOOD CELL COUNT(AUTO) 4.41 MIL/uL (4.50-5.90); RED CELL DISTRIBUTION WIDTH 16.8 % (11.5-14.5)
[2018-08-17 06:50] LABS: INR 1.3 (0.9-1.1); PROTHROMBIN TIME 13.1 SEC (9.4-11.6)
[2018-08-17 07:29] LABS: CALCIUM, TOTAL 10.1 mg/dL (8.8-10.5); CREATININE 3.8 mg/dL (0.60-1.30); POTASSIUM 4.6 mmol/L (3.5-5.1)
[2018-08-17 07:34] LABS: ALBUMIN 1.2 g/dL (3.4-5.0); BILIRUBIN,TOTAL 1.5 mg/dL (0.1-1.0); MAGNESIUM 1.9 mg/dL (1.80-2.40); PHOSPHORUS 6.3 mg/dL (2.5-4.9); TOTAL PROTEIN, SERUM 6.1 g/dL (6.4-8.2)
[2018-08-17 07:40] LABS: BAND NEUTROPHILS % (MANUAL) 11 % (0-5); LYMPHOCYTES % (MANUAL) 4 % (22-44); MONOCYTES % (MANUAL) 5 % (2-9); REACTIVE LYMPHOCYTES 2 % (0-0); SEGMENTED NEUTROPHILS % 78 % (40-70)
[2018-08-17 08:04] LABS: GLUCOMETER DEV NAME(LOC) 5S.2; GLUCOSE,POINT OF CARE 260 MG/DL (70-110)
[2018-08-17 08:04] LABS: GLUCOMETER DEV NAME(LOC) 5S.2; GLUCOSE,POINT OF CARE 128 MG/DL (70-110)
[2018-08-17] MEDS: ATORVASTATIN CALCIUM 10 MG TABLET PO SCH (09:00)
[2018-08-17] MEDS: HEPARIN SODIUM,PORCINE 5,000 UNITS/ML VIAL SQ SCH ×2 (09:00→21:00)
[2018-08-17] MEDS: ASPIRIN 81 MG EC TABLET PO SCH (09:00)
[2018-08-17] MEDS: FAMOTIDINE 20 MG TABLET PO SCH (09:00)
[2018-08-17] MEDS ORDERED: PHENYLEPHRINE 200 MG/D5%-WATER 250 ML IV PRN (11:15)
[2018-08-17 11:38] LABS: ABG BASE EXCESS -10.9 mmol/L (-2.0-3.0); ABG CARBOXYHEMOGLOBIN 1.1 % (0.0-1.5); ABG HCO3 16.7 mmol/L (22.0-26.0); ABG METHEMOGLOBIN 0.3 % (0.0-1.5); ABG OXYGEN CONTENT 17.8 mL/dL (15.0-23.0); ABG OXYGEN SATURATION 96.7 % (95.0-98.0); ABG OXYHEMOGLOBIN 95.3 % (94.0-100.0); ABG PCO2 33 mmHg (35-45); ABG PH 7.292 (7.35-7.450); ABG TOTAL HEMOGLOBIN 13.2 G/dL (12.0-18.0); PO2, ARTERIAL BG 101.2 mmHg (84.0-92.0); SOURCE, BLOOD GAS ARTERIAL; TEMPERATURE, FAHRENHEIT, BG 98.6 FAHREN (96.0-98.6)
[2018-08-17 11:39] LABS: SITE, BLOOD GAS RT BRACHIAL
[2018-08-17 11:40] LABS: O2 DEVICE,BLOOD GAS CANNULA (ROOM AIR)
[2018-08-17 11:44] LABS: GLUCOSE,POINT OF CARE 247 MG/DL (70-110)
[2018-08-17] MEDS: ALBUMIN HUMAN 25%-12.5GM/50ML 50 ML IV SCH ×3 (12:52→23:58)
[2018-08-17] MEDS: MORPHINE SULFATE 4 MG/ML SYRINGE IVP PRN ×2 (15:48→17:44)
[2018-08-17] MEDS ORDERED: CLINDAMYCIN 900 MG/D5% WATER 50 ML IV SCH (17:15)
[2018-08-17] MEDS: INSULIN LISPRO 100 UNITS/ML SQ PRN ×2 (17:43→21:52)
[2018-08-17 18:29] LABS: GLUCOSE,POINT OF CARE 323 MG/DL (70-110)
[2018-08-17] MEDS: CLINDAMYCIN 900 MG/D5% WATER 50 ML IV SCH (18:31)
[2018-08-17 23:29] LABS: GLUCOSE,POINT OF CARE 300 MG/DL (70-110)
[2018-08-18] VITALS (8 sets, daily range): BP systolic 115–138; BP diastolic 56–106
[2018-08-18] MEDS ORDERED: CefTRIAXone 1 GM/DEXTROSE 50 ML IV SCH
[2018-08-18] MEDS: CLINDAMYCIN 900 MG/D5% WATER 50 ML IV SCH ×3 (02:13→19:15)
[2018-08-18] MEDS: MORPHINE SULFATE 4 MG/ML SYRINGE IVP PRN ×2 (03:06→13:15)
[2018-08-18] MEDS ORDERED: SUCCINYLCHOLINE CHLORIDE 20 MG/ML 10 ML VIAL IVP ONE (05:25)
[2018-08-18] MEDS ORDERED: HYDROmorphone 2 MG/ML SYRINGE IVP ONE (05:25)
[2018-08-18] MEDS ORDERED: FentaNYL CITRATE-PF 100 MCG/2 ML VIAL IVP ONE (05:25)
[2018-08-18] MEDS ORDERED: PHENYLEPHRINE HCL 10 MG/ML VIAL IVP ONE (05:25)
[2018-08-18] MEDS ORDERED: PROPOFOL 1% 20 ML VIAL IVP ONE (05:25)
[2018-08-18] MEDS ORDERED: MIDAZOLAM HCL 2 MG/2 ML VIAL IVP ONE (05:25)
[2018-08-18] MEDS ORDERED: 0.9% SODIUM CHLORIDE 10 ML VIAL IVP ONE (05:25)
[2018-08-18] MEDS ORDERED: LIDOCAINE/PF 2% 5 ML VIAL IM ONE (05:25)
[2018-08-18 05:39] LABS: GLUCOSE,POINT OF CARE 301 MG/DL (70-110)
[2018-08-18] MEDS: ALBUMIN HUMAN 25%-12.5GM/50ML 50 ML IV SCH ×3 (06:10→19:00)
[2018-08-18] MEDS: INSULIN LISPRO 100 UNITS/ML SQ PRN ×4 (06:11→21:12)
[2018-08-18] MEDS: ASPIRIN 81 MG EC TABLET PO SCH (08:58)
[2018-08-18] MEDS: FAMOTIDINE 20 MG TABLET PO SCH (08:58)
[2018-08-18] MEDS: ATORVASTATIN CALCIUM 10 MG TABLET PO SCH (08:58)
[2018-08-18] MEDS: HEPARIN SODIUM,PORCINE 5,000 UNITS/ML VIAL SQ SCH ×2 (08:59→21:06)
[2018-08-18 09:15] LABS: HEMATOCRIT 33.8 % (41-53); HEMOGLOBIN 11.2 g/dL (13.5-17.5); MEAN CORPUSCULAR VOLUME 91 fL (80-100); PLATELET COUNT (AUTO) 162 K/uL (150-450); RED BLOOD CELL COUNT(AUTO) 3.72 MIL/uL (4.50-5.90); RED CELL DISTRIBUTION WIDTH 16.6 % (11.5-14.5)
[2018-08-18 09:32] LABS: CALCIUM, TOTAL 9.9 mg/dL (8.8-10.5); CREATININE 6.01 mg/dL (0.60-1.30); POTASSIUM 5.1 mmol/L (3.5-5.1)
[2018-08-18 10:17] LABS: BAND NEUTROPHILS % (MANUAL) 9 % (0-5); LYMPHOCYTES % (MANUAL) 3 % (22-44); MONOCYTES % (MANUAL) 5 % (2-9); SEGMENTED NEUTROPHILS % 83 % (40-70)
[2018-08-18 10:18] LABS: PLATELET MORPHOLOGY COMMENT GIANT PLTS PRESENT
[2018-08-18 15:09] LABS: GLUCOSE,POINT OF CARE 315 MG/DL (70-110)
[2018-08-18] MEDS ORDERED: SODIUM CHLORIDE 0.9% 250 ML IV ONE (18:14)
[2018-08-18] MEDS: MEROPENEM 500 MG in SODIUM CHLORIDE 0.9% 50 ML IV SCH (18:26)
[2018-08-18 18:39] LABS: GLUCOMETER DEV NAME(LOC) 6N.2; GLUCOSE,POINT OF CARE 270 MG/DL (70-110)
[2018-08-18] MEDS: INSULIN GLARGINE,HUM.REC.ANLOG 100 UNITS/ML SQ SCH (21:12)
[2018-08-19] VITALS (8 sets, daily range): BP systolic 91–128; BP diastolic 31–57
[2018-08-19] MEDS: ALBUMIN HUMAN 25%-12.5GM/50ML 50 ML IV SCH ×4 (01:12→18:23)
[2018-08-19] MEDS: CLINDAMYCIN 900 MG/D5% WATER 50 ML IV SCH ×3 (02:27→21:44)
[2018-08-19 03:06] LABS: GLUCOMETER DEV NAME(LOC) 6N.2; GLUCOSE,POINT OF CARE 271 MG/DL (70-110)
[2018-08-19] MEDS: INSULIN LISPRO 100 UNITS/ML SQ PRN (06:05)
[2018-08-19 06:38] LABS: HEMATOCRIT 31.4 % (41-53); HEMOGLOBIN 10.4 g/dL (13.5-17.5); MEAN CORPUSCULAR HEMOGLOBIN 30.1 pg (26.0-34.0); MEAN CORPUSCULAR VOLUME 91 fL (80-100); PLATELET COUNT (AUTO) 171 K/uL (150-450); RED BLOOD CELL COUNT(AUTO) 3.45 MIL/uL (4.50-5.90); RED CELL DISTRIBUTION WIDTH 16.2 % (11.5-14.5)
[2018-08-19 06:49] LABS: GLUCOMETER DEV NAME(LOC) 6N.2; GLUCOSE,POINT OF CARE 188 MG/DL (70-110)
[2018-08-19 07:12] LABS: ALBUMIN 2.2 g/dL (3.4-5.0); BILIRUBIN,TOTAL 1.9 mg/dL (0.1-1.0); CALCIUM, TOTAL 9.6 mg/dL (8.8-10.5); CREATININE 7.24 mg/dL (0.60-1.30); MAGNESIUM 2.8 mg/dL (1.80-2.40); POTASSIUM 5.5 mmol/L (3.5-5.1); TOTAL PROTEIN, SERUM 5.6 g/dL (6.4-8.2)
[2018-08-19] MEDS: NITROGLYCERIN 2% (1 GM=INCH) PACKET TP SCH ×2 (08:00→16:00)
[2018-08-19] MEDS: METOPROLOL TARTRATE 25 MG TABLET PO SCH ×2 (09:00→21:00)
[2018-08-19] MEDS: ASPIRIN 81 MG EC TABLET PO SCH (09:00)
[2018-08-19] MEDS: FAMOTIDINE 20 MG TABLET PO SCH (09:00)
[2018-08-19] MEDS: VITAMIN B COMP/VIT C/FOLIC ACID CAPSULE PO SCH (09:00)
[2018-08-19] MEDS: ATORVASTATIN CALCIUM 10 MG TABLET PO SCH (09:00)
[2018-08-19] MEDS: HEPARIN SODIUM,PORCINE 5,000 UNITS/ML VIAL SQ SCH ×2 (09:00→21:17)
[2018-08-19 09:21] LABS: BAND NEUTROPHILS % (MANUAL) 3 % (0-5); LYMPHOCYTES % (MANUAL) 4 % (22-44); METAMYELOCYTES % 2 % (0-0); MONOCYTES % (MANUAL) 3 % (2-9); SEGMENTED NEUTROPHILS % 88 % (40-70)
[2018-08-19 10:23] LABS: GLUCOMETER DEV NAME(LOC) 6N.2; GLUCOSE,POINT OF CARE 119 MG/DL (70-110)
[2018-08-19] MEDS ORDERED: SODIUM CHLORIDE 0.9% 250 ML IV ONE (11:16)
[2018-08-19] MEDS: ACETAMINOPHEN 325 MG TABLET PO PRN (11:27)
[2018-08-19] MEDS: CLOPIDOGREL BISULFATE 75 MG TABLET PO SCH (13:56)
[2018-08-19 14:39] LABS: GLUCOSE,POINT OF CARE 118 MG/DL (70-110)
[2018-08-19] MEDS ORDERED: TIGECYCLINE 100 MG in SODIUM CHLORIDE 0.9% 100 ML IV ONE (16:45)
[2018-08-19 19:32] LABS: GLUCOSE,POINT OF CARE 193 MG/DL (70-110)
[2018-08-19] MEDS: MORPHINE SULFATE 4 MG/ML SYRINGE IVP PRN (20:20)
[2018-08-19] MEDS: MEROPENEM 500 MG in SODIUM CHLORIDE 0.9% 50 ML IV SCH (21:16)
[2018-08-19] MEDS: INSULIN GLARGINE,HUM.REC.ANLOG 100 UNITS/ML SQ SCH (21:17)
[2018-08-20] VITALS: BP 129/28
[2018-08-20 00:16] LABS: GLUCOSE,POINT OF CARE 210 MG/DL (70-110)
[2018-08-20] MEDS: ALBUMIN HUMAN 25%-12.5GM/50ML 50 ML IV SCH ×5 (00:25→23:35)
[2018-08-20] MEDS: CLINDAMYCIN 900 MG/D5% WATER 50 ML IV SCH ×3 (02:06→19:02)
[2018-08-20 04:00] VITALS: BP 111/42
[2018-08-20 05:21] LABS: HEMATOCRIT 30.8 % (41-53); HEMOGLOBIN 10.1 g/dL (13.5-17.5); MEAN CORPUSCULAR HEMOGLOBIN 29.5 pg (26.0-34.0); MEAN CORPUSCULAR HGB CONC 32.8 G/dL (31.0-37.0); MEAN CORPUSCULAR VOLUME 90 fL (80-100); PLATELET COUNT (AUTO) 187 K/uL (150-450); RED BLOOD CELL COUNT(AUTO) 3.42 MIL/uL (4.50-5.90); RED CELL DISTRIBUTION WIDTH 16.7 % (11.5-14.5)
[2018-08-20 05:34] LABS: ALBUMIN 2.3 g/dL (3.4-5.0); BILIRUBIN,TOTAL 2.1 mg/dL (0.1-1.0); CALCIUM, TOTAL 9.8 mg/dL (8.8-10.5); CREATININE 5.57 mg/dL (0.60-1.30); MAGNESIUM 2.4 mg/dL (1.80-2.40); POTASSIUM 5.5 mmol/L (3.5-5.1); TOTAL PROTEIN, SERUM 6.5 g/dL (6.4-8.2)
[2018-08-20] MEDS: INSULIN LISPRO 100 UNITS/ML SQ PRN ×3 (05:48→17:57)
[2018-08-20 05:55] LABS: BAND NEUTROPHILS % (MANUAL) 14 % (0-5); BASOPHILS % (MANUAL) 1 % (0-2); LYMPHOCYTES % (MANUAL) 4 % (22-44); MONOCYTES % (MANUAL) 4 % (2-9); SEGMENTED NEUTROPHILS % 77 % (40-70)
[2018-08-20 06:54] LABS: GLUCOSE,POINT OF CARE 249 MG/DL (70-110)
[2018-08-20] MEDS ORDERED: TIGECYCLINE 50 MG in SODIUM CHLORIDE 0.9% 50 ML IV SCH (07:00)
[2018-08-20 08:00] VITALS: BP 105/58
[2018-08-20] MEDS: NITROGLYCERIN 2% (1 GM=INCH) PACKET TP SCH ×4 (08:00→23:34)
[2018-08-20] MEDS: METOPROLOL TARTRATE 25 MG TABLET PO SCH ×2 (09:00→20:49)
[2018-08-20] MEDS: HEPARIN SODIUM,PORCINE 5,000 UNITS/ML VIAL SQ SCH ×2 (09:02→20:49)
[2018-08-20] MEDS: ASPIRIN 81 MG EC TABLET PO SCH (09:02)
[2018-08-20] MEDS: ATORVASTATIN CALCIUM 10 MG TABLET PO SCH (09:02)
[2018-08-20] MEDS: CLOPIDOGREL BISULFATE 75 MG TABLET PO SCH (09:02)
[2018-08-20] MEDS: RANITIDINE HCL 150 MG TABLET PO SCH (09:02)
[2018-08-20] MEDS: VITAMIN B COMP/VIT C/FOLIC ACID CAPSULE PO SCH (09:02)
[2018-08-20 12:00] VITALS: BP 122/28
[2018-08-20 14:59] LABS: GLUCOSE,POINT OF CARE 214 MG/DL (70-110)
[2018-08-20] MEDS ORDERED: SODIUM CHLORIDE 0.9% 250 ML IV ONE (16:24)
[2018-08-20] MEDS: MEROPENEM 500 MG in SODIUM CHLORIDE 0.9% 50 ML IV SCH (16:31)
[2018-08-20] MEDS ORDERED: HEPARIN SODIUM,PORCINE 5,000 UNITS/ML VIAL IVP ONE (17:15)
[2018-08-20] MEDS ORDERED: HEPARIN SODIUM,PORCINE 5,000 UNITS/ML VIAL IVP PRN ×2 (17:15)
[2018-08-20] MEDS ORDERED: SODIUM CHLORIDE 0.9% 100 ML ONE ×2 (17:51→22:01)
[2018-08-20] MEDS: HEPARIN SODIUM 25000 UNITS/D5W 250 ML IV PRN (17:56)
[2018-08-20 18:01] LABS: BASOPHILS % (AUTO) 0.6 % (0.0-2.0); HEMATOCRIT 33.1 % (41-53); HEMOGLOBIN 10.6 g/dL (13.5-17.5); LYMPHOCYTES # (AUTO) 0.6 K/uL (1.0-4.8); MEAN CORPUSCULAR HEMOGLOBIN 28.8 pg (26.0-34.0); MEAN CORPUSCULAR HGB CONC 31.9 G/dL (31.0-37.0); MEAN CORPUSCULAR VOLUME 90 fL (80-100); MONOCYTES # (AUTO) 0.4 K/uL (0.1-1.0); MONOCYTES % (AUTO) 1.5 % (2.0-9.0); NEUTROPHILS # (AUTO) 26.1 K/uL (1.8-7.7); PLATELET COUNT (AUTO) 223 K/uL (150-450); RED BLOOD CELL COUNT(AUTO) 3.66 MIL/uL (4.50-5.90); RED CELL DISTRIBUTION WIDTH 16.7 % (11.5-14.5)
[2018-08-20 18:05] LABS: INR 1.5 (0.9-1.1); PROTHROMBIN TIME 15.1 SEC (9.4-11.6)
[2018-08-20 18:10] LABS: NEUTROPHILS % (AUTO) 94.9 % (40.0-70.0)
[2018-08-20 19:49] VITALS: BP 124/43
[2018-08-20 20:42] LABS: PLATELET MORPHOLOGY COMMENT LARGE PLTS PRESENT
[2018-08-20] MEDS: INSULIN GLARGINE,HUM.REC.ANLOG 100 UNITS/ML SQ SCH (20:50)
[2018-08-20] MEDS ORDERED: IOVERSOL 350 MG/ML 100 ML VIAL ONE (22:01)
[2018-08-21] VITALS: BP 106/42
[2018-08-21 00:49] LABS: INR 1.5 (0.9-1.1)
[2018-08-21 01:29] LABS: GLUCOMETER DEV NAME(LOC) 5S.2; GLUCOSE,POINT OF CARE 129 MG/DL (70-110)
[2018-08-21 01:29] LABS: GLUCOMETER DEV NAME(LOC) 5S.2; GLUCOSE,POINT OF CARE 204 MG/DL (70-110)
[2018-08-21] MEDS: CLINDAMYCIN 900 MG/D5% WATER 50 ML IV SCH ×3 (01:59→18:17)
[2018-08-21 04:26] VITALS: BP 127/67
[2018-08-21] MEDS: ALBUMIN HUMAN 25%-12.5GM/50ML 50 ML IV SCH ×3 (05:58→18:56)
[2018-08-21] MEDS: INSULIN LISPRO 100 UNITS/ML SQ PRN ×2 (05:58→17:07)
[2018-08-21] MEDS ORDERED: SODIUM CHLORIDE 0.9% 2,000 ML IV ONE (06:21)
[2018-08-21 06:24] LABS: BASOPHILS % (AUTO) 0.3 % (0.0-2.0); EOSINOPHILS % (AUTO) 1.2 % (1.0-6.0); HEMOGLOBIN 11.5 g/dL (13.5-17.5); LYMPHOCYTES # (AUTO) 0.6 K/uL (1.0-4.8); LYMPHOCYTES % (AUTO) 2.4 % (22.0-44.0); MEAN CORPUSCULAR HEMOGLOBIN 29.4 pg (26.0-34.0); MEAN CORPUSCULAR HGB CONC 32.8 G/dL (31.0-37.0); MEAN CORPUSCULAR VOLUME 90 fL (80-100); MONOCYTES # (AUTO) 0.5 K/uL (0.1-1.0); MONOCYTES % (AUTO) 2.1 % (2.0-9.0); NEUTROPHILS # (AUTO) 24.2 K/uL (1.8-7.7); PLATELET COUNT (AUTO) 226 K/uL (150-450); RED BLOOD CELL COUNT(AUTO) 3.91 MIL/uL (4.50-5.90); RED CELL DISTRIBUTION WIDTH 16.5 % (11.5-14.5)
[2018-08-21 06:43] LABS: ALBUMIN 2.7 g/dL (3.4-5.0); BILIRUBIN,TOTAL 1.8 mg/dL (0.1-1.0); CALCIUM, TOTAL 9.8 mg/dL (8.8-10.5); CREATININE 6.76 mg/dL (0.60-1.30); MAGNESIUM 2.6 mg/dL (1.80-2.40); POTASSIUM 5.9 mmol/L (3.5-5.1)
[2018-08-21 07:51] VITALS: BP 113/67
[2018-08-21] MEDS: NITROGLYCERIN 2% (1 GM=INCH) PACKET TP SCH ×2 (08:00→16:28)
[2018-08-21] MEDS: VITAMIN B COMP/VIT C/FOLIC ACID CAPSULE PO SCH (09:00)
[2018-08-21] MEDS: METOPROLOL TARTRATE 25 MG TABLET PO SCH ×2 (09:00→21:29)
[2018-08-21] MEDS: ATORVASTATIN CALCIUM 10 MG TABLET PO SCH (09:00)
[2018-08-21] MEDS: ASPIRIN 81 MG EC TABLET PO SCH (09:00)
[2018-08-21] MEDS: CLOPIDOGREL BISULFATE 75 MG TABLET PO SCH (09:00)
[2018-08-21 09:19] LABS: GLUCOMETER DEV NAME(LOC) 5S.1; GLUCOSE,POINT OF CARE 177 MG/DL (70-110)
[2018-08-21] MEDS: MORPHINE SULFATE 4 MG/ML SYRINGE IVP PRN (09:35)
[2018-08-21] MEDS: HEPARIN SODIUM,PORCINE 5,000 UNITS/ML VIAL SQ SCH (10:03)
[2018-08-21] MEDS: HEPARIN SODIUM 25000 UNITS/D5W 250 ML IV PRN (11:25)
[2018-08-21] MEDS ORDERED: HYDROmorphone 2 MG/ML SYRINGE IVP ONE (11:30)
[2018-08-21 11:49] VITALS: BP 123/63
[2018-08-21] MEDS: RANITIDINE HCL 150 MG TABLET PO SCH (12:52)
[2018-08-21 15:53] VITALS: BP 113/71
[2018-08-21] MEDS: CefoTEtan DISODIUM 0.5 GM in DEXTROSE 5%-WATER 50 ML IV SCH (16:28)
[2018-08-21] MEDS: MEROPENEM 500 MG in SODIUM CHLORIDE 0.9% 50 ML IV SCH (17:23)
[2018-08-21 20:00] VITALS: BP 116/45
[2018-08-21 20:25] LABS: GLUCOMETER DEV NAME(LOC) 5S.1; GLUCOSE,POINT OF CARE 170 MG/DL (70-110)
[2018-08-21 20:25] LABS: GLUCOMETER DEV NAME(LOC) 5S.1; GLUCOSE,POINT OF CARE 97 MG/DL (70-110)
[2018-08-21] MEDS: INSULIN GLARGINE,HUM.REC.ANLOG 100 UNITS/ML SQ SCH (21:30)
[2018-08-21] MEDS: CADEXOMER IODINE 40 GM GEL TP SCH (21:31)
[2018-08-21 21:39] LABS: GLUCOSE,POINT OF CARE 232 MG/DL (70-110)
[2018-08-22] VITALS: BP 112/52
[2018-08-22] MEDS: ALBUMIN HUMAN 25%-12.5GM/50ML 50 ML IV SCH ×3 (00:28→12:22)
[2018-08-22] MEDS: NITROGLYCERIN 2% (1 GM=INCH) PACKET TP SCH ×3 (00:29→16:53)
[2018-08-22] MEDS: CLINDAMYCIN 900 MG/D5% WATER 50 ML IV SCH ×2 (03:47→10:35)
[2018-08-22 04:00] VITALS: BP 129/66
[2018-08-22] MEDS: MORPHINE SULFATE 4 MG/ML SYRINGE IVP PRN (05:26)
[2018-08-22] MEDS: INSULIN LISPRO 100 UNITS/ML SQ PRN ×3 (05:30→17:36)
[2018-08-22 05:53] LABS: BASOPHILS % (AUTO) 0.2 % (0.0-2.0); EOSINOPHILS % (AUTO) 0.5 % (1.0-6.0); HEMATOCRIT 27.9 % (41-53); HEMOGLOBIN 9.2 g/dL (13.5-17.5); LYMPHOCYTES # (AUTO) 0.5 K/uL (1.0-4.8); LYMPHOCYTES % (AUTO) 2.2 % (22.0-44.0); MEAN CORPUSCULAR HEMOGLOBIN 29.5 pg (26.0-34.0); MEAN CORPUSCULAR VOLUME 90 fL (80-100); MONOCYTES # (AUTO) 0.7 K/uL (0.1-1.0); PLATELET COUNT (AUTO) 248 K/uL (150-450); RED BLOOD CELL COUNT(AUTO) 3.11 MIL/uL (4.50-5.90); RED CELL DISTRIBUTION WIDTH 16.6 % (11.5-14.5)
[2018-08-22 06:04] LABS: NEUTROPHILS % (AUTO) 94.1 % (40.0-70.0)
[2018-08-22 06:18] LABS: ALBUMIN 2.4 g/dL (3.4-5.0); BILIRUBIN,TOTAL 1.8 mg/dL (0.1-1.0); CALCIUM, TOTAL 9.4 mg/dL (8.8-10.5); CREATININE 4.31 mg/dL (0.60-1.30); MAGNESIUM 2.3 mg/dL (1.80-2.40); POTASSIUM 4.9 mmol/L (3.5-5.1); TOTAL PROTEIN, SERUM 6.2 g/dL (6.4-8.2)
[2018-08-22 06:54] LABS: GLUCOSE,POINT OF CARE 265 MG/DL (70-110)
[2018-08-22 08:00] VITALS: BP 137/70
[2018-08-22] MEDS: ATORVASTATIN CALCIUM 10 MG TABLET PO SCH (08:16)
[2018-08-22] MEDS: METOPROLOL TARTRATE 25 MG TABLET PO SCH (08:16)
[2018-08-22] MEDS: VITAMIN B COMP/VIT C/FOLIC ACID CAPSULE PO SCH (08:16)
[2018-08-22] MEDS: ASPIRIN 81 MG EC TABLET PO SCH (08:16)
[2018-08-22] MEDS: RANITIDINE HCL 150 MG TABLET PO SCH (08:17)
[2018-08-22] MEDS: CADEXOMER IODINE 40 GM GEL TP SCH (08:17)
[2018-08-22] MEDS: HEPARIN SODIUM 25000 UNITS/D5W 250 ML IV PRN (08:18)
[2018-08-22] MEDS: CLOPIDOGREL BISULFATE 75 MG TABLET PO SCH (08:35)
[2018-08-22 12:00] VITALS: BP 113/60
[2018-08-22 12:24] LABS: GLUCOSE,POINT OF CARE 221 MG/DL (70-110)
[2018-08-22] MEDS ORDERED: POVIDONE-IODINE 10% 15 ML SOLUTION UD ONE (13:13)
[2018-08-22] MEDS ORDERED: POVIDONE-IODINE 10% 240 ML SOLUTION TP SCH (13:15)
[2018-08-22] MEDS: CefoTEtan DISODIUM 0.5 GM in DEXTROSE 5%-WATER 50 ML IV SCH (15:41)
[2018-08-22 16:00] VITALS: BP 126/64
[2018-08-22] MEDS: MEROPENEM 500 MG in SODIUM CHLORIDE 0.9% 50 ML IV SCH (16:53)
[2018-08-22 18:44] LABS: GLUCOSE,POINT OF CARE 157 MG/DL (70-110)
[2018-08-23] MEDS ORDERED: EPOETIN ALFA 10,000 UNITS/ML VIAL SQ SCH (09:00)
== END 2018-08-22 17:55 | DRG 853 ==
LOC: EMS 11:16 → ICU 21:05 → ICUN 08-12 20:35 → ICU 08-14 19:18 → 5S 08-15 12:35 → ICU 08-17 10:45 → 6N 08-18 17:05 → ICU 08-19 10:25 → 5S 08-20 13:30 → ICU 08-21 19:50
PROVIDERS: ADMIT Internal Medicine; ATTEND Internal Medicine
PROC: 0QBN0ZZ Excision of Right Metatarsal, Open Approach (ICD-10-PCS; principal; 2018-08-12 21:00)
PROC: 05HY33Z Insertion of Infusion Device into Upper Vein, Percutaneous Approach (ICD-10-PCS; 2018-08-13)
PROC: B54MZZA Ultrasonography of Right Upper Extremity Veins, Guidance (ICD-10-PCS; 2018-08-13)
PROC: 0Y6C0Z2 Detachment at Right Upper Leg, Mid, Open Approach (ICD-10-PCS; 2018-08-17)
PROC: 0JBL0ZZ Excision of Right Upper Leg Subcutaneous Tissue and Fascia, Open Approach (ICD-10-PCS; 2018-08-21)
PROC: 5A1D70Z Performance of Urinary Filtration, Intermittent, Less than 6 Hours Per Day (ICD-10-PCS; 2018-08-21)
DX: A41.9 Sepsis, unspecified organism (principal); N18.6 End stage renal disease; M72.6 Necrotizing fasciitis; R65.21 Severe sepsis with septic shock; I21.4 Non-ST elevation (NSTEMI) myocardial infarction; L03.115 Cellulitis of right lower limb; E87.1 Hypo-osmolality and hyponatremia; I12.0 Hypertensive chronic kidney disease with stage 5 chronic kidney disease or end stage renal disease; L02.419 Cutaneous abscess of limb, unspecified; L02.611 Cutaneous abscess of right foot; L97.409 Non-pressure chronic ulcer of unspecified heel and midfoot with unspecified severity; M86.8X7 Other osteomyelitis, ankle and foot; E11.65 Type 2 diabetes mellitus with hyperglycemia; I25.10 Atherosclerotic heart disease of native coronary artery without angina pectoris; G40.909 Epilepsy, unspecified, not intractable, without status epilepticus; E11.21 Type 2 diabetes mellitus with diabetic nephropathy; E11.22 Type 2 diabetes mellitus with diabetic chronic kidney disease; E11.39 Type 2 diabetes mellitus with other diabetic ophthalmic complication; E11.621 Type 2 diabetes mellitus with foot ulcer; E11.69 Type 2 diabetes mellitus with other specified complication; E78.5 Hyperlipidemia, unspecified; E83.52 Hypercalcemia; E87.5 Hyperkalemia; H54.8 Legal blindness, as defined in USA; I99.8 Other disorder of circulatory system; Z63.8 Other specified problems related to primary support group; L97.519 Non-pressure chronic ulcer of other part of right foot with unspecified severity; Z66 Do not resuscitate; Z95.1 Presence of aortocoronary bypass graft; Z99.2 Dependence on renal dialysis; Z79.82 Long term (current) use of aspirin; Z79.899 Other long term (current) drug therapy
CPT/HCPCS: 36245; 36569; 36600; 70450; 71260; 72193; 73700; 74160; 76937; 82271; 82805; 83036; 83605; 83735; 84100; 84132; 86706; 87040; 87070; 87081; 87205; 87340; 88304; 88305; 88311; 88312; 92610; 93005; 93306; 94644; 94660; 96374; 96375; 99291; G0378; J0330; J0610; J0696; J0885; J1170; J1644; J1815; J2185; J2250; J2270; J2370; J2405; J2543; J2704; J3010; J3243; J3370; J3490; J7030; J7050; J7060; P9047